=== PATIENT | female | born 1965 | race Caucasian/White ===

== ENCOUNTER 2016-10-01 13:21 | Emergency (ER) | payer SELFPAY ==
[2016-10-01 14:49] VITALS: BP 147/99; TEMP 98.3; O2SAT 95
== END 2016-10-01 16:05 | disposition left against medical advice (07) ==
LOC: ER 13:21
DX: Z53.21 Procedure and treatment not carried out due to patient leaving prior to being seen by health care provider (principal)

== ENCOUNTER 2016-10-16 20:47 | Emergency (ER) | payer SELFPAY ==
[2016-10-16 21:52] VITALS: O2SAT 98
--- NOTE | 2016-10-16 21:57 | ED.PDOC ---
History of Present Illness - General Chief Complaint: General Stated Complaint: elevated blood pressure, and vaginal discharge Time Seen by Provider: 10/16/16 21:28 Source: patient Exam Limitations: no limitations - History of Present Illness Initial Comments: Patient presents with dysuria and vaginal discharge as well has hypertension. She was here two weeks ago and diagnosed with UTI. She did not accept the prescription she was offered due to financial reasons so she took some ciprofloxacin that her daughter had. She has not recovered. She also notice her blood pressures running in the 180s systolic and 100s diastolic today. She took an extra dose of lisinopril today to treat that. She had a headache earlier but that resolved. No other complaints. Timing/Duration: other - 2 weeks for uti sx, one day for htn Severity: moderate Improving Factors: nothing Worsening Factors: nothing Associated Symptoms: denies symptoms Allergies/Adverse Reactions: Allergies Ketorolac Tromethamine [From Toradol] Allergy (Verified 10/01/16 14:50) Morphine Allergy (Verified 10/01/16 14:50) Penicillins Allergy (Verified 10/01/16 14:50) Sulfa Antibiotics Allergy (Verified 10/01/16 14:50) Home Medications: Ambulatory Orders Albuterol Inhaler [Ventolin Hfa Inhaler] 1 puff INH PRN PRN 09/04/13 Lisinopril/Hctz 20-25 mg [Zestoretic 20-25 mg] 1 ea PO AM 09/04/13 Fluticasone/Salmeterol 250/50 [Advair Diskus] 1 puff INH BID 06/03/16 Methocarbamol [Robaxin] 750 mg PO TID #14 tab 08/02/16 Promethazine HCl 25 mg PO Q6HRS PRN #30 tab 08/02/16 predniSONE [Prednisone] 10 mg PO TID #20 tab 08/02/16 Cefdinir 300 mg PO Q12HR #10 cap 10/16/16 Review of Systems - Review of Systems Constitutional: States: no symptoms reported EENTM: States: no symptoms reported Respiratory: States: no symptoms reported Cardiology: States: see HPI, other - denies chest pain Gastrointestinal/Abdominal: States: no symptoms reported Genitourinary: States: see HPI Musculoskeletal: States: no symptoms reported Skin: States: no symptoms reported Neurological: States: no symptoms reported Endocrine: States: no symptoms reported Hematologic/Lymphatic: States: no symptoms reported Past Medical History (General) - Patient Medical History Hx Seizures: No Hx Stroke: No Hx Dementia: No Hx Asthma: Yes Hx of COPD: Yes Hx Cardiac Disorders: No Hx Congestive Heart Failure: No Hx Pacemaker: No Hx Hypertension: Yes Hx Diabetes: No Hx Gastroesophageal Reflux: No Hx Renal Disease: No Hx Cancer: Yes - Cervical Hx Hepatitis C: No Hx MRSA: No - Vaccination History Hx Tetanus, Diphtheria Vaccination: Yes Hx Influenza Vaccination: Yes Hx Pneumococcal Vaccination: Yes - Social History Hx Tobacco Use: No Hx Chewing Tobacco Use: No Hx Alcohol Use: Yes Hx Substance Use: No Hx Substance Use Treatment: No Hx Depression: No Hx Physical Abuse: No Hx Emotional Abuse: No Hx Suspected Abuse: No - Female History Hx Last Menstrual Period: 08/26/92 Patient : No Family Medical History - Family History Mother Family History: Unknown Name: Virginia Padilla Living Status: Age at (years of age): 70 Hx Family Asthma: Yes Hx Family Congestive Heart Failure: Yes Hx Family Hypertension: Yes Hx Family Stroke: Yes Hx Cardiac Disease: Yes Hx Family Diabetes: Yes Hx Family Cancer: Yes - pancreatic Physical Exam - Physical Exam General Appearance: Alert Ears, Nose, Throat: normal ENT inspection Neck: non-tender, full range of motion, supple Respiratory: lungs clear Cardiovascular/Chest: normal peripheral pulses, regular rate, rhythm Gastrointestinal/Abdominal: normal bowel sounds, non tender, soft Back Exam: normal inspection, no CVA tenderness Extremity: normal range of motion, non-tender Skin Exam: normal color Lymphatic: no adenopathy Progress - Progress Progress: 10/16/16 22:00 UA positive for LE, nitrites, bacteria, and wbcs. 10/16/16 23:45 Patient received ceftriaxone 1 gram IV x one. Blood pressure decreased to 154/ 90. Patient discharged with cefdinir for 5 days. Laboratory Tests 10/16/16 10/16/16 21:08 22:10 WBC 11.3 H RBC 5.24 Hgb 14.8 Hct 44.5 MCV 84.8 MCH 28.3 MCHC 33.4 RDW 15.2 H Plt Count 248 MPV 8.8 Absolute Neuts (auto) 6.50 Absolute Lymphs (auto) 3.40 Absolute Monos (auto) 0.90 H Absolute Eos (auto) 0.30 Absolute Basos (auto) 0.10 Neutrophils % 58.1 Lymphocytes % 30.0 Monocytes % 7.9 Eosinophils % 2.9 Basophils % 1.1 Sodium 137 Potassium 4.2 Chloride 101 Carbon Dioxide 27 Anion Gap 13.2 BUN 28 H Creatinine 0.73 BUN/Creatinine Ratio 38.4 H Random Glucose 116 H Serum Osmolality 280.3 Calcium 9.6 Total Bilirubin 0.5 AST 41 ALT 44 Alkaline Phosphatase 76 Serum Total Protein 7.9 Albumin 4.6 Globulin 3.3 Albumin/Globulin Ratio 1.4 Urine Color Yellow Urine Appearance Sl cloudy Urine pH 5.5 Ur Specific [place] >= 1.030 Urine Protein Trace Urine Glucose (UA) Negative Urine Ketones Negative Urine Blood Small H Urine Nitrite Negative Urine Bilirubin Negative Urine Urobilinogen 0.2 Ur Leukocyte Esterase Moderate H Urine RBC 3-5 H Urine WBC Tntc H Ur Epithelial Cells 5-10 Urine Bacteria 3+ H Departure - Departure Clinical Impression: UTI (urinary tract infection) Disposition: Discharge to Home or Self Care Condition: Good Departure Forms: ED Discharge - Pt. Copy, Patient Portal Self Enrollment Diet: resume usual diet Activity: increase activity as tolerated Prescriptions: Cefdinir 300 mg PO Q12HR #10 cap Home Medications: Ambulatory Orders Albuterol Inhaler [Ventolin Hfa Inhaler] 1 puff INH PRN PRN 09/04/13 Lisinopril/Hctz 20-25 mg [Zestoretic 20-25 mg] 1 ea PO AM 09/04/13 Fluticasone/Salmeterol 250/50 [Advair Diskus] 1 puff INH BID 06/03/16 Methocarbamol [Robaxin] 750 mg PO TID #14 tab 08/02/16 Promethazine HCl 25 mg PO Q6HRS PRN #30 tab 08/02/16 predniSONE [Prednisone] 10 mg PO TID #20 tab 08/02/16 Cefdinir 300 mg PO Q12HR #10 cap 10/16/16 Additional Instructions: Take your medications as prescribed. Follow up with your primary care doctor in one week. Increase oral fluids.
[2016-10-16] MEDS ORDERED: cefTRIAXone SODIUM 1 GM in SODIUM CHL 0.9% 50ML MIN-BAG+ 50 ML IVPB ONE (22:21)
[2016-10-16] MEDS ORDERED: cefTRIAXone SODIUM 1 GM VIAL ONE (22:25)
[2016-10-16] MEDS ORDERED: SODIUM CHL 0.9% 50ML MIN-BAG+ 50 ML IVPB ONE (22:26)
[2016-10-16] MEDS ORDERED: PROMETHAZINE HCL 25 MG TAB PO ONE (22:55)
[2016-10-16] MEDS ORDERED: PROMETHAZINE HCL 25 MG TAB ONE (22:55)
[2016-10-17 00:03] VITALS: BP 155/92; TEMP 98.1
== END 2016-10-17 00:02 | disposition home or self-care (01) ==
LOC: ER 20:47
DX: N39.0 Urinary tract infection, site not specified (principal); I10 Essential (primary) hypertension; J44.9 Chronic obstructive pulmonary disease, unspecified; Z85.41 Personal history of malignant neoplasm of cervix uteri; Z79.899 Other long term (current) drug therapy; Z88.0 Allergy status to penicillin; Z88.2 Allergy status to sulfonamides; Z88.6 Allergy status to analgesic agent
CPT/HCPCS: 36415; 80053; 81001; 85025; 87086; J0696; J7050; Q0169

== ENCOUNTER 2016-10-28 06:21 | Emergency (ER) | payer SELFPAY ==
[2016-10-28] MEDS ORDERED: METOPROLOL TARTRATE INJ 5 MG/5 ML VIAL IV ONE ×3 (06:52→06:59)
--- NOTE | 2016-10-28 06:56 | ED.PDOC ---
History of Present Illness - General Chief Complaint: Blood Pressure Problem Stated Complaint: elevated blood pressure Time Seen by Provider: 10/28/16 06:52 Source: patient, RN notes reviewed, Vital Signs reviewed Exam Limitations: no limitations - History of Present Illness Initial Comments: Patient is a 51 y/o female who has been feeling badly for the past month. She has been to either the ED or her PCP and has been treated with antibiotics for a UTI. She continues to feel badly. She has a vaginal discharge which is bloody. No odor. She is postmenopausal since the . The last time she had intercourse was 2 months ago with her ex-. Patient has some tightness in her chest. She has felt ill with malaise, fatigue , nausea. She denies any iam chest pain. She is currently on Lisinopril/HCTZ 20/25 for blood pressure. She got up this AM feeling ill and went to work. At work they checked her blood pressure and it was very high. Timing/Duration: getting worse, other - 1 month Severity: moderate Improving Factors: nothing Worsening Factors: nothing Associated Symptoms: fever/chills, headaches, malaise, nausea/vomiting, shortness of breath, weakness Allergies/Adverse Reactions: Allergies Ketorolac Tromethamine [From Toradol] Allergy (Verified 10/28/16 06:40) Morphine Allergy (Verified 10/28/16 06:40) Penicillins Allergy (Verified 10/28/16 06:40) Sulfa Antibiotics Allergy (Verified 10/28/16 06:40) Home Medications: Ambulatory Orders Albuterol Inhaler [Ventolin Hfa Inhaler] 1 puff INH PRN PRN 09/04/13 Lisinopril/Hctz 20-25 mg [Zestoretic 20-25 mg] 1 ea PO AM 09/04/13 Fluticasone/Salmeterol 250/50 [Advair Diskus] 1 puff INH BID 06/03/16 Methocarbamol [Robaxin] 750 mg PO TID #14 tab 08/02/16 Promethazine HCl 25 mg PO Q6HRS PRN #30 tab 08/02/16 predniSONE [Prednisone] 10 mg PO TID #20 tab 08/02/16 Cefdinir 300 mg PO Q12HR #10 cap 10/16/16 Review of Systems - Review of Systems Constitutional: States: chills, malaise, weakness EENTM: States: blurred vision, nose congestion, throat pain Respiratory: States: short of breath, wheezing Cardiology: States: other - chest tightness. Denies: palpitations Gastrointestinal/Abdominal: States: constipation, diarrhea, nausea Genitourinary: States: discharge Musculoskeletal: States: back pain, joint pain, muscle pain Skin: States: no symptoms reported Neurological: States: anxiety, headache, tingling, weakness Endocrine: States: unexplained weight gain, unexplained weight loss Hematologic/Lymphatic: States: no symptoms reported. Denies: easy bleeding, easy bruising All other Systems: Reviewed and Negative Past Medical History (General) - Patient Medical History Hx Seizures: No Hx Stroke: No Hx Dementia: No Hx Asthma: Yes Hx of COPD: Yes Hx Cardiac Disorders: No Hx Congestive Heart Failure: No Hx Pacemaker: No Hx Hypertension: Yes Hx Diabetes: No Hx Gastroesophageal Reflux: No Hx Renal Disease: No Hx Cancer: Yes - Cervical Hx Hepatitis C: No Hx MRSA: No Surgical History: appendectomy, cholecystectomy, Hysterectomy - Vaccination History Hx Tetanus, Diphtheria Vaccination: Yes Hx Influenza Vaccination: Yes Hx Pneumococcal Vaccination: Yes - Social History Hx Tobacco Use: Yes Hx Chewing Tobacco Use: No Hx Alcohol Use: Yes Hx Substance Use: No Hx Substance Use Treatment: No Hx Depression: No Hx Physical Abuse: No Hx Emotional Abuse: No Hx Suspected Abuse: No - Female History Hx Last Menstrual Period: 08/26/92 Patient : No Family Medical History - Family History Mother Family History: Unknown Name: Virginia Padilla Living Status: Age at (years of age): 70 Hx Family Asthma: Yes Hx Family Congestive Heart Failure: Yes Hx Family Hypertension: Yes Hx Family Stroke: Yes Hx Cardiac Disease: Yes Hx Family Diabetes: Yes Hx Family Cancer: Yes - pancreatic Physical Exam - Physical Exam General Appearance: Alert, Anxious, Obvious distress, Other - Crying Eye Exam: bilateral normal Ears, Nose, Throat: hearing grossly normal, normal ENT inspection Respiratory: lungs clear, normal breath sounds, no respiratory distress, no accessory muscle use Cardiovascular/Chest: regular rate, rhythm, no edema, no gallop, no murmur Gastrointestinal/Abdominal: normal bowel sounds, non tender, soft, no organomegaly Extremity: normal inspection, no pedal edema, no calf tenderness Neurologic: alert, oriented x 3, depressed affect Skin Exam: normal color, warm/dry Progress - Progress Progress: 10/28/16 07:08 Patient was given Metoprolol 5 mg IV with good response. Patient's care was turned over to Dr. Reyez at 0705. - Results/Orders Results/Orders: 10/28/16 06:32 Pulse Rate [ 80 left] Respiratory 18 Rate Blood Pressure 175/121 [left] O2 Sat by Pulse 98 Oximetry Departure - Departure Disposition: Discharge to Home or Self Care Condition: Fair Departure Forms: ED Discharge - Pt. Copy, Patient Portal Self Enrollment Home Medications: Ambulatory Orders Albuterol Inhaler [Ventolin Hfa Inhaler] 1 puff INH PRN PRN 09/04/13 Lisinopril/Hctz 20-25 mg [Zestoretic 20-25 mg] 1 ea PO AM 09/04/13 Fluticasone/Salmeterol 250/50 [Advair Diskus] 1 puff INH BID 06/03/16 Methocarbamol [Robaxin] 750 mg PO TID #14 tab 08/02/16 Promethazine HCl 25 mg PO Q6HRS PRN #30 tab 08/02/16 predniSONE [Prednisone] 10 mg PO TID #20 tab 08/02/16 Cefdinir 300 mg PO Q12HR #10 cap 10/16/16 Addendum entered and electronically signed by Colton Reyez MD 10/28/16 08:44 : Departure - Departure Clinical Impression: Hypertensive urgency, Vaginal trichomoniasis, Substance abuse Disposition: Discharge to Home or Self Care Condition: Fair Departure Forms: ED Discharge - Pt. Copy, Patient Portal Self Enrollment Instructions: DI for High Blood Pressure, DI for Trichomoniasis Diet: low salt diet, regular diet Activity: increase activity as tolerated Referrals: Cherise Grewal NP [Primary Care Provider] - 1-2 Weeks Prescriptions: Amlodipine Besylate 5 mg PO DAILY #20 tab Montelukast Sodium [Singulair] 10 mg PO DAILY #20 tab Home Medications: Ambulatory Orders Albuterol Inhaler [Ventolin Hfa Inhaler] 1 puff INH PRN PRN 09/04/13 Lisinopril/Hctz 20-25 mg [Zestoretic 20-25 mg] 1 ea PO AM 09/04/13 Fluticasone/Salmeterol 250/50 [Advair Diskus] 1 puff INH BID 06/03/16 Methocarbamol [Robaxin] 750 mg PO TID #14 tab 08/02/16 Promethazine HCl 25 mg PO Q6HRS PRN #30 tab 08/02/16 predniSONE [Prednisone] 10 mg PO TID #20 tab 08/02/16 Cefdinir 300 mg PO Q12HR #10 cap 10/16/16 Amlodipine Besylate 5 mg PO DAILY #20 tab 10/28/16 Montelukast Sodium [Singulair] 10 mg PO DAILY #20 tab 10/28/16 ED Addendum - ED Addendum Addendum: the patient is a 51-year-old female presenting to the emergency room secondary to vaginal discharge and uncontrolled hypertension and symptoms related to that. The patient has taken an Adderall that was not hers recently. On further discussion she apparently does have a history of some uncontrolled hypertension at baseline. The patient is going to be placed on Norvasc 5 mg daily to be taken at the TIME of day is her lisinopril. She does need to record her blood pressures when she is at rest several times daily to make sure that she is getting better blood pressure control. She obviously needs to avoid stimulants such as methamphetamine use, prescription Adderall or over-the- counter medications that contain pseudoephedrine. The patient has tested positive for Trichomonas giving her the symptoms of vaginitis. The patient was treated with metronidazole in 1 large dose. Additionally she was empirically given a dose of Rocephin and azithromycin for coverage until her gonorrhea and chlamydia test are returned. The patient is feeling better with the blood pressure coming down. headache has improved. Patient has been monitored for an extended period of time. She was dosed with the dose of Norvasc here. She does need follow-up with her primary care doctor in the very near future with her blood pressure recordings. EKG for this patient shows normal sinus rhythm with mild LVH and left atrial dilation. No acute ST segment changes otherwise worrisome for ischemia. 10/28/16 07:18 Chest,1 View [RAD] Stat 10/28/16 07:35 UA [URINALYSIS] Stat culture is pending 10/28/16 07:53 GC CULTURE Stat results are pending 10/28/16 08:02 GC CHLAMYDIA RNA,TMA Stat Results are pending Laboratory Results - last 24 hr 10/28/16 10/28/16 07:10 07:17 WBC 7.8 RBC 5.52 H Hgb 15.7 Hct 47.3 H MCV 85.6 MCH 28.4 MCHC 33.3 RDW 14.7 H Plt Count 225 MPV 9.1 Absolute Neuts (auto) 5.40 Absolute Lymphs (auto) 1.50 Absolute Monos (auto) 0.60 Absolute Eos (auto) 0.30 Absolute Basos (auto) 0.10 Neutrophils % 68.8 Lymphocytes % 19.0 L Monocytes % 7.8 Eosinophils % 3.7 Basophils % 0.7 PT 11.9 INR 1.050 PTT (SP) 35.9 D-Dimer, Quantitative 241 H* Sodium 141 Potassium 4.2 Chloride 104 Carbon Dioxide 27 Anion Gap 14.2 BUN 22 H Creatinine 0.72 BUN/Creatinine Ratio 30.6 H Random Glucose 102 Serum Osmolality 284.8 Calcium 9.3 Magnesium 2.0 Total Bilirubin 0.4 Direct Bilirubin < 0.1 Indirect Bilirubin 0.3 AST 27 ALT 31 Alkaline Phosphatase 86 Creatine Kinase 72 CK-MB (CK-2) 2.8 CK-MB (CK-2) % Not Reportable Troponin I < 0.02 B-Natriuretic Peptide 9.5 Serum Total Protein 7.9 Albumin 4.2 Amylase 96 Lipase 31 Urine Color Yellow Urine Appearance Sl cloudy Urine pH 5.0 Ur Specific [place] 1.025 Urine Protein Negative Urine Glucose (UA) Negative Urine Ketones Negative Urine Blood Trace-lysed H Urine Nitrite Negative Urine Bilirubin Negative Urine Urobilinogen 0.2 Ur Leukocyte Esterase Moderate H Urine RBC 1-3 Urine WBC 40-50 H Ur Epithelial Cells 5-10 Amorphous Sediment Trace Urine Bacteria 1+ Urine Mucus Trace Urine Opiates Screen Negative Urine Barbiturates Negative Ur Phencyclidine Scrn Negative U Amphetamin/Meth Scrn Positive H U Benzodiazepines Scrn Negative U Cocaine Metab Screen Negative U Cannabinoids Screen Positive H I see no evidence of cardiomegaly, infiltrate or mass on chest x-ray. No evidence of overt fluid overload. Addendum entered and electronically signed by Colton Reyez MD 10/28/16 11:57 : Departure - Departure Clinical Impression: Hypertensive urgency, Trichomonas vaginitis, Substance abuse Disposition: Discharge to Home or Self Care Condition: Fair Departure Forms: ED Discharge - Pt. Copy, Patient Portal Self Enrollment Instructions: DI for High Blood Pressure, DI for Trichomoniasis Diet: low salt diet, regular diet Activity: increase activity as tolerated Referrals: Cherise Grewal NP [Primary Care Provider] - 1-2 Weeks Prescriptions: Amlodipine Besylate 5 mg PO DAILY #20 tab Clonidine HCl 0.1 mg PO Q3H PRN #10 tab PRN Reason: Hypertension Montelukast Sodium [Singulair] 10 mg PO DAILY #20 tab Home Medications: Ambulatory Orders Albuterol Inhaler [Ventolin Hfa Inhaler] 1 puff INH PRN PRN 09/04/13 Lisinopril/Hctz 20-25 mg [Zestoretic 20-25 mg] 1 ea PO AM 09/04/13 Fluticasone/Salmeterol 250/50 [Advair Diskus] 1 puff INH BID 06/03/16 Methocarbamol [Robaxin] 750 mg PO TID #14 tab 08/02/16 Promethazine HCl 25 mg PO Q6HRS PRN #30 tab 08/02/16 predniSONE [Prednisone] 10 mg PO TID #20 tab 08/02/16 Cefdinir 300 mg PO Q12HR #10 cap 10/16/16 Amlodipine Besylate 5 mg PO DAILY #20 tab 10/28/16 Clonidine HCl 0.1 mg PO Q3H PRN #10 tab 10/28/16 Montelukast Sodium [Singulair] 10 mg PO DAILY #20 tab 10/28/16 Additional Instructions: The patient is a 51-year-old female presenting secondary to uncontrolled hypertension with symptoms of headache as well as vaginal discharge of a rather extended duration. The patient has tested positive for Trichomonas and has been treated with oral Flagyl. She needs a repeat vaginal swab in 2 weeks. the patient has also been treated empirically for gonorrhea and chlamydia with Rocephin and azithromycin. If these tests come back positive then she will need a test of cure in 2 weeks. she needs to avoid intercourse with her partner until he is tested and treated as well. The patient was treated with IV metoprolol and oral clindamycin for the uncontrolled hypertension. It was likely contributed to by unauthorized abuse of Adderall. She needs to avoid all stimulant medication such as Adderall, methamphetamines or pseudoephedrine. Patient's blood pressures have normalized and she is feeling better at this time. She is to follow up with her primary care doctor in 1 week with a blood pressure log of twice daily checks. She is being started on once daily Norvasc 5 mg to be taken at the opposite time of day of her lisinopril. She is also being given a short prescription of Singulair for her asthma symptoms. She is also being given a short prescription of clonidine to use on an as-needed basis for persistent systolic blood pressures greater than 170. ER warnings are given for any acute worsening.
[2016-10-28] MEDS ORDERED: SODIUM CHLORIDE 0.9% (FLUSH) 10 ML SYG IV PRN (06:59)
[2016-10-28] MEDS ORDERED: HYDROcodone 5MG/APAP 325MG 1 EA TAB PO ONE (07:18)
[2016-10-28] MEDS ORDERED: amLODIPine BESYLATE 5 MG TAB PO ONE (08:03)
[2016-10-28] MEDS ORDERED: cefTRIAXone SODIUM 1 GM VIAL IM ONE (08:28)
[2016-10-28] MEDS ORDERED: AZITHROMYCIN 250 MG TAB PO ONE (08:28)
[2016-10-28] MEDS ORDERED: metroNIDAZOLE 500 MG TAB PO ONE (08:29)
--- NOTE | 2016-10-28 08:47 | RAD ---
PROCEDURE: XR CHEST 1 VIEW HISTORY: chest tightness COMPARISON: 08/02/2016 TECHNIQUE: Single projection of the chest was done. FINDINGS: The lung zabala are well inflated . There are no discrete airspace infiltrates, pneumothoraces or pleural effusions. The pulmonary vascularity is normal. The cardiomediastinal contour is unremarkable . IMPRESSION: There is no acute pleural-parenchymal process seen in the imaged lung zabala. Location of Interpretation: [facility] Electronically signed by: Ifeanyi Braga MD 10/28/2016 8:46 AM [facility]
[2016-10-28] MEDS ORDERED: ALPRAZolam 0.25 MG TAB PO ONE (10:04)
[2016-10-28] MEDS ORDERED: cloNIDine HCL 0.1 MG TAB ONE (10:15)
[2016-10-28] MEDS ORDERED: cloNIDine HCL 0.1 MG TAB PO ONE (10:16)
[2016-10-28 11:52] VITALS: BP 136/105; O2SAT 97
[2016-10-29] MEDS ORDERED: cloNIDine HCL 0.1 MG TAB PO SCH (09:00)
== END 2016-10-28 12:15 | disposition home or self-care (01) ==
LOC: ER 06:21
DX: I16.0 Hypertensive urgency (principal); A59.01 Trichomonal vulvovaginitis; F19.10 Other psychoactive substance abuse, uncomplicated; J44.9 Chronic obstructive pulmonary disease, unspecified; Z87.891 Personal history of nicotine dependence; Z85.41 Personal history of malignant neoplasm of cervix uteri; Z79.899 Other long term (current) drug therapy; Z88.6 Allergy status to analgesic agent; Z88.0 Allergy status to penicillin

== ENCOUNTER 2017-07-10 11:32 | Observation (INO) | payer SELFPAY ==
[2017-07-10] MEDS ORDERED: ASPIRIN TABLET 325 MG TAB PO ONE (11:47)
[2017-07-10] MEDS ORDERED: SODIUM CHLORIDE 0.9% (FLUSH) 10 ML SYG IV PRN ×2 (11:47→16:28)
[2017-07-10] MEDS ORDERED: PROMETHAZINE HCL INJ 25 MG in SODIUM CHLORIDE 0.9% 50ML 50 ML IVPB ONE (11:48)
[2017-07-10] MEDS ORDERED: ACETAMINOPHEN-CAFF-BUTALBITAL 1 EA TAB PO PRN (11:49)
[2017-07-10] MEDS ORDERED: LABETALOL INJ 5 MG/ML VIAL IV ONE (11:49)
[2017-07-10] MEDS ORDERED: PROMETHAZINE HCL INJ 25 MG/ML VIAL ONE (11:52)
[2017-07-10] MEDS ORDERED: SODIUM CHLORIDE 0.9% 50ML 50 ML ONE (11:52)
--- NOTE | 2017-07-10 12:23 | RAD ---
Study: Single Frontal View of the Chest. Indication:chest pain Comparison: October 28, 2016. Impression: Heart size normal. Lungs clear. No acute osseous abnormality. Electronically signed by: Derrick Katz MD 07/10/2017 12:22 PM [facility]
--- NOTE | 2017-07-10 12:25 | CT ---
Study: CT of the Head. Indication: headache, htn Technique: Axial CT images of the head were acquired without intravenous contrast. This exam was performed according to our departmental dose-optimization program, which includes automated exposure control, adjustment of the mA and/or kV according to patient size and/or use of iterative reconstruction technique. Comparison: None. Findings: No CT evidence of acute ischemia, acute hemorrhage, mass, mass effect, midline shift, or extra-axial fluid collection. Ventricles are normal in configuration without hydrocephalus. Brain parenchyma demonstrates a normal appearance for patient age. Paranasal sinuses are adequately aerated. Mastoid air cells are adequately aerated. Osseous structures and soft tissues are unremarkable. Impression: 1. No CT evidence of acute intracranial abnormality. Electronically signed by: Derrick Katz MD 07/10/2017 12:23 PM CASE COORDINATOR
[2017-07-10] MEDS ORDERED: METOCLOPRAMIDE HCL INJ 10 MG/2 ML VIAL IV ONE (13:09)
[2017-07-10] MEDS ORDERED: diphenhydrAMINE HCL 50 MG/ML VIAL IV ONE (13:09)
[2017-07-10] MEDS ORDERED: SODIUM CHLORIDE 0.9% 1000ML 1,000 ML IVS ONE (13:10)
--- NOTE | 2017-07-10 13:40 | ED.PDOC ---
History of Present Illness - General Chief Complaint: Cardiovascular Problem Stated Complaint: headache, dizziness Time Seen by Provider: 07/10/17 11:38 Source: patient Exam Limitations: no limitations - History of Present Illness Initial Comments: PT PRESENTS TO THE ED WITH MULTIPLE COMPLAINTS INCLUDING, CHEST PAIN, DISORIENTATION, HEADACHE, MALAISE, ELEVATED BP. PT REPORTS TAKING EXTRA DOSES OF LISINOPRIL AND NORVASC SINCE LAST NIGHT WITHOUT REDUCTION IN BP. PT DENIES CHEST PAIN CURRENTLY BUT REPORTS 9/10 HEADACHE. Timing/Duration: 7-24 hours Activities at Onset: none Improving Factors: nothing Worsening Factors: nothing Nitro Today/Relief: no nitro taken today Aspirin Treatment Today: no aspirin today Associated Symptoms: headache Allergies/Adverse Reactions: Allergies Ketorolac Tromethamine [From Toradol] Allergy (Verified 10/28/16 06:40) Morphine Allergy (Verified 10/28/16 06:40) Penicillins Allergy (Verified 10/28/16 06:40) Sulfa Antibiotics Allergy (Verified 10/28/16 06:40) Home Medications: Ambulatory Orders Albuterol Inhaler [Ventolin Hfa Inhaler] 1 puff INH PRN PRN 09/04/13 Lisinopril/Hctz 20-25 mg [Zestoretic 20-25 mg] 1 ea PO AM 09/04/13 Fluticasone/Salmeterol 250/50 [Advair Diskus] 1 puff INH BID 06/03/16 Methocarbamol [Robaxin] 750 mg PO TID #14 tab 08/02/16 Promethazine HCl 25 mg PO Q6HRS PRN #30 tab 08/02/16 predniSONE 10 mg PO TID #20 tab 08/02/16 Cefdinir 300 mg PO Q12HR #10 cap 10/16/16 Amlodipine Besylate 5 mg PO DAILY #20 tab 10/28/16 Clonidine HCl 0.1 mg PO Q3H PRN #10 tab 10/28/16 Montelukast [Singulair] 10 mg PO DAILY #20 tab 10/28/16 Review of Systems - Review of Systems Constitutional: States: malaise. Denies: chills, fever EENTM: Denies: ear pain, nose congestion Respiratory: Denies: cough, short of breath Cardiology: States: chest pain. Denies: palpitations Gastrointestinal/Abdominal: States: nausea. Denies: diarrhea, vomiting Genitourinary: Denies: frequency, hematuria Musculoskeletal: Denies: joint pain, joint swelling Skin: Denies: change in color, lesions Neurological: States: headache. Denies: anxiety Endocrine: Denies: excessive sweating, increased thirst Past Medical History (General) - Patient Medical History Hx Seizures: No Hx Stroke: No Hx Dementia: No Hx Asthma: Yes Hx of COPD: Yes Hx Cardiac Disorders: No Hx Congestive Heart Failure: No Hx Pacemaker: No Hx Hypertension: Yes Hx Diabetes: No Hx Gastroesophageal Reflux: No Hx Renal Disease: No Hx Cancer: Yes - Cervical Hx Hepatitis C: No Hx MRSA: No Surgical History: Hysterectomy - Vaccination History Hx Tetanus, Diphtheria Vaccination: Yes Hx Influenza Vaccination: Yes Hx Pneumococcal Vaccination: Yes - Social History Hx Tobacco Use: Yes Hx Chewing Tobacco Use: No Hx Alcohol Use: Yes 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 DENIES USE FOR LAST FEW MONTHS Hx Substance Use Treatment: No Hx Depression: No Hx Physical Abuse: No Hx Emotional Abuse: No Hx Suspected Abuse: No - Female History Hx Last Menstrual Period: 08/26/92 Patient : No Family Medical History - Family History Mother Family History: Unknown Name: Virginia Padilla Living Status: Age at (years of age): 70 Hx Family Asthma: Yes Hx Family Congestive Heart Failure: Yes Hx Family Hypertension: Yes Hx Family Stroke: Yes Hx Cardiac Disease: Yes Hx Family Diabetes: Yes Hx Family Cancer: Yes - pancreatic Physical Exam - Physical Exam General Appearance: Alert, Obvious distress, Well Groomed, Well Hydrated, Well Nourished Eyes, Ears, Nose, Throat Exam: PERRL/EOMI, normal ENT inspection Neck: full range of motion, supple, normal inspection Respiratory: lungs clear, normal breath sounds, no respiratory distress Cardiovascular/Chest: regular rate, rhythm, no murmur Gastrointestinal/Abdominal: non tender, soft Extremity: normal range of motion, non-tender Neurologic: alert, oriented x 3 Skin Exam: normal color, warm/dry Progress - Progress Progress: 07/10/17 12:47 PTS BP 133/82 AFTER 20MG IV LABETALOL. PT CONTINUES TO COMPLAIN OF HEADACHE AFTER PHENERGAN AND FIORICET. REQUESTING FOOD. 07/10/17 13:55 PT REPORTS SOME RELIEF IN HEADACHE AFTER REGLAN AND BENADRYL. DISCUSSED LABS AND DIAGNOSTIC STUDIES WITH PATIENT. SHE AGREES WITH PLAN TO ADMIT FOR BLOOD PRESSURE MANAGEMENT AND OBSERVATION. - Results/Orders Results/Orders: 07/10/17 11:47 IV Care:Saline Lock per Protoc QSHIFT Telemetry .ONCE Sodium Chloride 0.9% (Flush) [Saline Flush Syringe] 10 ml IV PRN PRN EKG Stat Pulse Ox Stat 07/10/17 11:48 Pulse Oximetry Assessment DAILY 07/10/17 11:49 Poroqxnkxabir-Ckzd-Anufwgpefe [Fioricet] 2 ea PO Q6H PRN 07/10/17 13:10 Sodium Chloride 0.9% 1000ML [Ns 1000 ml] 1,000 ml IVS ONCE Laboratory Results - last 24 hr 07/10/17 07/10/17 11:15 12:40 WBC 8.6 RBC 5.34 Hgb 15.5 Hct 45.4 MCV 85.2 MCH 29.1 MCHC 34.2 RDW 14.2 Plt Count 244 MPV 9.7 Absolute Neuts (auto) 5.70 Absolute Lymphs (auto) 1.90 Absolute Monos (auto) 0.60 Absolute Eos (auto) 0.20 Absolute Basos (auto) 0.20 H Neutrophils % 66.4 Lymphocytes % 22.0 Monocytes % 7.2 Eosinophils % 2.5 Basophils % 1.9 PT 10.9 INR 0.960 PTT (SP) 32.7 Sodium 135 Potassium 4.0 Chloride 101 Carbon Dioxide 25 Anion Gap 13.0 BUN 22 H Creatinine 0.67 BUN/Creatinine Ratio 32.8 H Random Glucose 101 Serum Osmolality 273.6 L Calcium 9.5 Magnesium 1.9 Creatine Kinase 63 CK-MB (CK-2) 1.5 CK-MB (CK-2) % Not Reportable Troponin I < 0.02 B-Natriuretic Peptide 11.1 Urine Color Yellow Urine Appearance Clear Urine pH 7.0 Ur Specific [place]allow[place] 1.015 Urine Protein Negative Urine Glucose (UA) Negative Urine Ketones Negative Urine Blood Negative Urine Nitrite Negative Urine Bilirubin Negative Urine Urobilinogen 0.2 Ur Leukocyte Esterase Negative Urine RBC 0 Urine WBC 0 Ur Epithelial Cells 10-20 Urine Bacteria Rare - EKG/XRAY/CT EKG: Sinus - @63BPM, NL INTERVAS, NL AXIS, no ST T wave changes, Unchanged from - 10/28/16 XRAY: chest - NO ACUTE DISEASE CT Ordered: Yes - HEAD: NO ACUTE FINDINGS Departure - Departure Clinical Impression: Hypertensive urgency, Chest pain, Headache Time of Disposition: 13:57 Disposition: Admit Patient Condition: Fair Departure Forms: ED Discharge - Pt. Copy, Patient Portal Self Enrollment Instructions: DI for Chest Pain Referrals: Cherise Grewal, BRICK EXTRUDER OPERATOR [Primary Care Provider] - 1-2 Weeks Home Medications: Ambulatory Orders Albuterol Inhaler [Ventolin Hfa Inhaler] 1 puff INH PRN PRN 09/04/13 Lisinopril/Hctz 20-25 mg [Zestoretic 20-25 mg] 1 ea PO AM 09/04/13 Fluticasone/Salmeterol 250/50 [Advair Diskus] 1 puff INH BID 06/03/16 Methocarbamol [Robaxin] 750 mg PO TID #14 tab 08/02/16 Promethazine HCl 25 mg PO Q6HRS PRN #30 tab 08/02/16 predniSONE 10 mg PO TID #20 tab 08/02/16 Cefdinir 300 mg PO Q12HR #10 cap 10/16/16 Amlodipine Besylate 5 mg PO DAILY #20 tab 10/28/16 Clonidine HCl 0.1 mg PO Q3H PRN #10 tab 10/28/16 Montelukast [Singulair] 10 mg PO DAILY #20 tab 10/28/16 Decision To Admit - Decistion To Admit Decision to Admit Reason: Admit from ER - HYPERTENSIVE URGENCY, CHEST PAIN, HEADACHE Decision to Admit Date: 07/10/17 - CASE DISCUSSED WITH DR. PIEDRA WHO AGREES TO ADMIT Decision to Admit Time: 13:58
--- NOTE | 2017-07-10 14:22 | HP ---
HISTORY OF PRESENT ILLNESS: This 52 year-old white female is placed in the hospital for overnight observation from the Emergency Room because of generally feeling very poorly with headache and very high blood pressure. Symptoms have been getting worse for the last 3 to 4 days. She is currently on Lisinopril, Norvasc and Hydrochlorothiazide, and admitted to noting that her blood pressure systolic was over 200 and her diastolic over 100, and she started taking extra doses up to 2 to 3 extra doses per day. She has not been seen in the [facility] recently and is encouraged to do so. She apparently stopped smoking 2 years ago but has recently started smoking 3 or 4 cigarettes per day. In the Emergency Room, her blood pressure was 160/116 with a headache of a 9/10 in severity. She was given Labetalol IV which helped her blood pressure and in fact it was quite low with systolic in the 90s on admission to the hospital. She has apparently had a history of parenteral methamphetamine use in the past but has been off of it for about a month, she says. The patient is placed in the hospital for close observation and management to make sure the blood pressure returns towards a more normal level with intervention as needed. PAST MEDICAL HISTORY: 1. Hypertension. 2. Nephrolithiasis. 3. Urinary tract infection. 4. History of pneumonia. 5. Chronic obstructive pulmonary disease. 6. Allergic rhinitis. 7. Asthma. PAST SURGICAL HISTORY: 1. Appendectomy. 2. Cholecystectomy. 3. Hysterectomy. CURRENT MEDICATIONS: Please refer to nurses' notes for a list of verified home medications. ALLERGIES: TORADOL, PENICILLIN, TROMETHAMINE, MORPHINE AND SULFA MEDICATIONS. FAMILY HISTORY: Positive for chronic obstructive pulmonary disease, coronary artery disease and cancer. SOCIAL HISTORY: The patient has worked as a CONVERTING TECHNICIAN in the past. She lives at home alone. Her daughter works at a local hospice and visits her as often as possible. She apparently is still smoked 3 or 4 cigarettes a day though she originally stated she had stopped 2 years ago. REVIEW OF SYSTEMS: She admits to losing some weight. No fever or chills though she does have a sense of chilling most of the time. HEENT: No hearing or vision disturbances. LUNGS: No coughing or sputum but she is short of breath on exertion. CARDIOVASCULAR: Mild chest pain associated with her severe headache and further followup necessary. No palpitations. GASTROINTESTINAL: Appetite has decreased. No blood in the stools. GENITOURINARY: No burning upon urination. NEUROLOGIC: Severe headache is present with high blood pressure. PHYSICAL EXAMINATION: VITAL SIGNS: Afebrile, blood pressure initially is 163/107 and it eventually slowed down to 90/54 in the hospital. Pulse oximetry was down to 93% on room air. Weight is 79.2 kilos. GENERAL: The patient is awake and alert, and able to communicate pretty well. HEENT: Within normal limits. NECK: Supple. CHEST: Lungs have some diminished breath sounds, occasional rales in the lung bases more on the left than the right. CARDIOVASCULAR: Heart tones are fairly regular. ABDOMEN: Soft with no organomegaly, masses or tenderness. EXTREMITIES: No significant pedal edema. Good muscle tone. NEUROLOGIC: No focal neurological deficits. She does have a headache. LABORATORY STUDIES: White count is 8,600, hemoglobin 15.5, INR 0.96. Chemistry shows potassium 4, BUN 22, creatinine 0.67, ratio 32.8. Osmolality is low at 273, troponin zero. Beta natriuretic peptide 11. Urinalysis generally clean. No cultures at this time. RADIOLOGY: Head CT is performed and showed no acute findings. Chest x-ray showed no acute findings. ASSESSMENT: 1. Acute hypertensive crisis - symptomatic. 2. Excessive antihypertensive medications self dosing. 3. Chest pain associated with severe headache. 4. Cephalgia probably secondary to the elevated blood pressure and stress. 5. Chronic obstructive pulmonary disease in a chronic smoker, still smoking. Encouraged to stop with bronchodilators and pulmonary hygiene initiated while in the hospital. PLAN: Will continue with current treatment program. Will add Toprol 25 mg once a day tomorrow if systolic is greater than 110. Will spread the blood pressure medicines taking the Norvasc in the morning and Lisinopril in the evening. Work on analgesia. Repeat cardiac enzymes in the morning and pulmonary hygiene to continue. Again, strongly encouraged to stop all smoking. Reevaluate in the morning. #[id number] [facility], [place]
[2017-07-10] MEDS ORDERED: LEVALBUTEROL NEBS 1.25 MG/3 ML VIAL INH PRN (16:28)
[2017-07-10] MEDS ORDERED: MAGNESIUM HYDROXIDE 30 ML UD PO PRN (16:28)
[2017-07-10] MEDS ORDERED: IV SET AND CAP CHANGE INJ INJ SCH (16:30)
[2017-07-10] MEDS: HYDROcodone 5MG/APAP 325MG 1 EA TAB PO PRN (16:46)
[2017-07-10] MEDS: SODIUM CHLORIDE 0.45% 1000ML 1,000 ML IVS PRN (16:47)
[2017-07-10] MEDS: IPRATROPIUM/ALBUTEROL 3 ML VIAL INH SCH ×2 (17:34→20:49)
--- NOTE | 2017-07-10 20:37 | PCM.CORE ---
Physician DVT/VTE - Nurse DVT Assessment & Total Each Risk Factor Represents 1 Point: Age 41-60, Hx of smoking past year Each Risk Factor is 1 Point: Obesity (BMI >25), Serious Lung disease (pnemonia < 1month, COPD, emphysema,etc) DVT Assessment Score: 4 - 5 or more Very High Risk Treatments: Early Ambulation *, Sequential Compression Device Pharmacological: Enoxaparin 40mg SQ Daily
[2017-07-10] MEDS ORDERED: ENOXAPARIN SODIUM 40 MG/0.4 ML SYG SUBCU SCH (21:00)
[2017-07-10] MEDS ORDERED: LISINOPRIL 10 MG TAB PO SCH (21:00)
[2017-07-11] MEDS: HYDROcodone 5MG/APAP 325MG 1 EA TAB PO PRN ×2 (02:45→11:11)
[2017-07-11] MEDS: SODIUM CHLORIDE 0.45% 1000ML 1,000 ML IVS PRN (05:33)
[2017-07-11] MEDS ORDERED: OMEPRAZOLE CAP 20 MG CAP PO SCH (06:30)
[2017-07-11] MEDS ORDERED: ONDANSETRON INJ 4 MG/2 ML VIAL IV PRN (08:07)
[2017-07-11] MEDS: IPRATROPIUM/ALBUTEROL 3 ML VIAL INH SCH ×2 (08:20→12:15)
[2017-07-11] MEDS ORDERED: amLODIPine BESYLATE 5 MG TAB PO SCH (09:00)
[2017-07-11] MEDS ORDERED: METOPROLOL SUCCINATE XL 25 MG TAB PO SCH (09:00)
[2017-07-11 14:01] VITALS: TEMP 97.2
[2017-07-11 14:04] VITALS: BP 101/70; O2SAT 96
--- NOTE | 2017-07-11 16:34 | DS ---
DISCHARGE DIAGNOSIS: 1. Acute hypertensive crisis - symptomatic showing some improvement. 2. Excessive antihypertensive medications with self dosing eventually resulting in fairly significant hypotensive response and requiring stabilization and management. 3. Chest pain associated with severe headache with no evidence of significant underlying ischemic coronary disease noted. 4. Cephalgia probably secondary to an elevated blood pressure and attendant stress. 5. Chronic obstructive pulmonary disease in a chronic smoker still smoking and encouraged to stop. To continue on bronchodilators with pulmonary hygiene continued at home. 6. Adult situational reaction with attendant stress reaction no doubt contributing to some of the stress of the patient's current existence. HISTORY OF PRESENT ILLNESS: This 52 year-old white female was placed in the hospital for observation from the Emergency Room because of feeling very ill with high blood pressure, headache, nausea and symptoms worsening. It is of note that the patient is noting elevated blood pressure for the last 3 to 4 days and has been taking extra doses of her medicines up to 2 to 3 extra doses per day to try to help control her blood pressure. She has not been seen in the [facility] recently and is encouraged to get adequate followup to assist with these decisions in her treatment course. She stopped smoking a couple of years ago but recently restarted and now is about 3 to 4 or more cigarettes per day. Her initial blood pressure was 160/116 with a severe headache of 9/10 severity. Labetalol was given which eventually resulted when she came into the hospital to her hospital bed to systolics in the 90s. On the day of discharge, it was improved to the point where she was able to feel much better after walking with a systolic blood pressure in the 110s. She was still having a lot of stress primarily focused upon her home situation and other family issues which she is going to be working on closely. She was feeling much improved at the time of discharge. LABORATORY: White count of 8,600 with 66% neutrophils, hemoglobin 15.5, INR of 0.96. Potassium 4, BUN 28, creatinine 0.76, glucose 106. Troponin on repeat was zero. Beta natriuretic peptide 11. Urinalysis is clean. No cultures obtained. RADIOLOGY: Head CT showed no acute findings and chest x-ray was generally unremarkable. HOSPITAL COURSE: The patient was feeling much improved on the morning of discharge and her daughter is available to pick her up after 5:00 on the afternoon of discharge so that she will be able to go home and continue with special attention to her health needs. PLAN: Discharge home and followup in [facility] with Dr. Fuchs the first of next week. Clinic time and visit is to be given to the patient to assist with compliance and followup. She is to observe her blood pressure closely at home with a cuff that has been checked for accuracy at the clinic. Suggest stopping the Hydrochlorothiazide present in the Zestoretic medication and given a prescription for just the Lisinopril 20 mg as a $4.00 [employer] prescription. She is to adjust the amount of blood pressure medications taken so that management of the blood pressure within normal range can be better controlled. She is to walk routinely. Stay active. Return if not improving. #[id number]
== END 2017-07-11 05:00 | disposition home or self-care (01) ==
LOC: ER 11:32 → MS 14:20
PROVIDERS: ADMIT Emergency Medicine; ATTEND Emergency Medicine
DX: I16.9 Hypertensive crisis, unspecified (principal); I10 Essential (primary) hypertension; R07.89 Other chest pain; R51 Headache; J44.9 Chronic obstructive pulmonary disease, unspecified; F17.210 Nicotine dependence, cigarettes, uncomplicated; F43.29 Adjustment disorder with other symptoms; R11.0 Nausea; Z79.52 Long term (current) use of systemic steroids; Z79.899 Other long term (current) drug therapy; Z88.0 Allergy status to penicillin; Z88.2 Allergy status to sulfonamides; Z88.6 Allergy status to analgesic agent; Z88.8 Allergy status to other drugs, medicaments and biological substances; Z82.49 Family history of ischemic heart disease and other diseases of the circulatory system
CPT/HCPCS: 36415 ×3; 70450; 71010; 80048 ×2; 81001; 82550 ×2; 82553 ×2; 83880; 84484 ×2; 85025; 85610; 85730; 93005; 94640 ×3; 94760 ×3; 96361; 96365; 96372; 96375 ×2; 99284; A4216; G0378; J1200; J1650; J2405; J2550; J2765; J7030; J7620 ×3; J7799 ×2

== ENCOUNTER 2017-07-17 10:47 | Emergency (ER) | payer SELFPAY ==
[2017-07-17 11:02] VITALS: TEMP 97.7
[2017-07-17] MEDS ORDERED: ONDANSETRON INJ 4 MG/2 ML VIAL IV ONE ×2 (11:02→13:47)
[2017-07-17] MEDS ORDERED: ACTIVATED CHARCOAL PELLETS 25 GM BTTL PO ONE (11:02)
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
[2017-07-17] MEDS ORDERED: fentaNYL CITRATE INJ 50 MCG/ML AMP IV ONE (13:47)
[2017-07-17 14:01] VITALS: BP 136/86; O2SAT 98
== END 2017-07-17 14:01 | disposition short-term general hospital (02) ==
LOC: ER 10:47
DX: T39.012A Poisoning by aspirin, intentional self-harm, initial encounter (principal); R79.89 Other specified abnormal findings of blood chemistry; Y92.9 Unspecified place or not applicable; J44.9 Chronic obstructive pulmonary disease, unspecified; I10 Essential (primary) hypertension; Z85.41 Personal history of malignant neoplasm of cervix uteri; Z91.5 Personal history of self-harm; Z88.0 Allergy status to penicillin; Z88.2 Allergy status to sulfonamides; Z79.899 Other long term (current) drug therapy
CPT/HCPCS: 36415; 80053; 80307; 80329; 85025; 93005; J2405; J3010

== ENCOUNTER 2019-04-21 05:27 | Day surgery (SDC) | payer OTHER ==
[2019-04-21] MEDS ORDERED: LACTATED RINGERS 1,000 ML ONE (10:49)
[2019-04-21] MEDS ORDERED: PROPOFOL 200 MG/20 ML VIAL IV ONE (12:00)
[2019-04-21] MEDS ORDERED: LIDOCAINE 1% 10 ML VIAL INJ ONE (12:00)
[2019-04-21] MEDS ORDERED: HYDROmorphone HCL INJ 2 MG/ML VIAL ONE (12:21)
[2019-04-21] MEDS: HYDROcodone 5MG/APAP 325MG 1 EA TAB ONE (13:20)
[2019-04-21 14:25] VITALS: BP 120/82; TEMP 98.1; O2SAT 96
--- NOTE | 2019-04-22 08:06 | RAD ---
EXAM DESCRIPTION: Fluoroscopy Up to 1Hr CLINICAL HISTORY: 53 years, Female, JULIUS COMPARISON: None FINDINGS/IMPRESSION: Single intraoperative fluoroscopic view of the knee demonstrate changes of total knee arthroplasty in adequate alignment. Please see procedure report for full details. Fluoroscopic images saved: 1. Electronically signed by: Wayne Currie DO 04/22/2019 8:04 AM CDT
--- NOTE | 2019-04-22 08:48 | OP ---
DATE OF PROCEDURE: 04/21/19 PREOPERATIVE DIAGNOSIS: 1. Arthrofibrosis. POSTOPERATIVE DIAGNOSIS: 1. Arthrofibrosis. PROCEDURE: 1. Manipulation under anesthesia. SURGEON: Surinder Contreras MD. SCHOOL EXAMINER: Zoltan Corbin CST, SA-C. ANESTHESIA: Conscious sedation. COMPLICATIONS: None. FINDINGS: Preoperative range of motion to about 95 degrees. Postoperative range of motion to about 120 degrees. INDICATION: Ms. Tilley has a history of total knee arthroplasty. She has had some limitations in her physical therapy and, therefore, has developed stiffness. We discussed the risks, benefits and alternatives to closed manipulation and she gave informed consent for that. PROCEDURE: The patient was brought to the Operating Room and placed in supine position. Sedation was administered and the knee was hyperflexed to about 120 degrees. Fluoroscopic imaging was used to confirm no acute complications of the procedure. The patient was then awoken from anesthesia and taken back to the Day Surgery Unit. POSTOPERATIVE PLAN: The patient will begin immediate range of motion exercises and I have encouraged her to be aggressive with patient at home as well. The patient will followup with us in 2 weeks. [facility][id number] [facility]
== END 2019-04-21 13:45 | disposition home or self-care (01) ==
LOC: AMB 05:27
PROVIDERS: ATTEND Orthopaedic Surgery
DX: T84.89XA Other specified complication of internal orthopedic prosthetic devices, implants and grafts, initial encounter (principal); M24.661 Ankylosis, right knee; Z96.651 Presence of right artificial knee joint; Z90.49 Acquired absence of other specified parts of digestive tract; Z79.899 Other long term (current) drug therapy
CPT/HCPCS: 01380; 27570; 76000; J1170; J3490; J7120